=== PATIENT | female | born 1940 | race Two or more races ===

== ENCOUNTER 2022-09-07 10:55 | Emergency (ER) | payer SELFPAY ==
[2022-09-07 11:03] VITALS: BP 133/61; PULSE 82; RESP 18; TEMP 98.4; BMI 11.4
[2022-09-07] MEDS ORDERED: ACETAMINOPHEN 325 MG TABLET (FP) PO ONE (12:15)
[2022-09-07] MEDS ORDERED: ACETAMINOPHEN 325 MG TABLET (FP) ONE (12:19)
== END 2022-09-07 13:42 | disposition home or self-care (01) ==
LOC: JERFT 10:55 → JER 10:55 → JERFT 13:42
DX: M54.2 Cervicalgia (principal); H92.02 Otalgia, left ear
CPT/HCPCS: 0241U-QW; 99283-25